=== PATIENT | female | born 1970 | race Caucasian/White ===

== ENCOUNTER 2024-08-31 00:09 | Inpatient (IN) | payer MEDICAID, SELFPAY ==
[2024-08-31] VITALS (15 sets, daily range): BP systolic 96–136; BP diastolic 60–90; PULSE 67–147; RESP 16–99; TEMP 36.2–39.5; O2SAT 95–99; BMI 36.6
--- NOTE | 2024-08-31 00:21 | PC.NURSE ---
sepsis alert called
--- NOTE | 2024-08-31 00:44 | EKG_ITS ---
[facility] Test Date: 2024-08-31 Pat Name: MIGUELANGEL BORREGO Department: Room: - Gender: Female Environmental Management Specialist: : 1970 Requested By: ED Temporary Provider Order Number: [id number] Reading MD: ED Temporary Provider Measurements Intervals [place] Rate: 134 P: 43 [place]: 127 QRS: -17 QRSD: 93 T: 52 QT: 287 QTc: 429 Interpretive Statements SINUS TACHYCARDIA LOW QRS VOLTAGE IN PRECORDIAL LEADS [QRS DEFLECTION < 1.0 mV IN CHEST LEADS] POSSIBLE ANTERIOR MYOCARDIAL INFARCTION , PROBABLY OLD [30 ms Q WAVE IN V3/V4, OR R < 0.2 mV IN V4] ABNORMAL RHYTHM ECG No previous ECG available for comparison /store/S0/[id number]/[id number].pdf
--- NOTE | 2024-08-31 00:44 | XR_ITS ---
Examination: PA chest single view TECHNIQUE: Upright PA chest single view Exam date and time: August 31, 2024 0051 hours INDICATIONS: Sepsis today. FINDINGS: Bronchitis versus early bibasilar pneumonia. Normal heart size Prominent osteopenia IMPRESSION: Bronchitis versus early bibasilar pneumonia, clinical correlation advised
--- NOTE | 2024-08-31 01:05 | EDRME_ITS ---
Rapid Medical Screening Exam [facility] Arrival date/time: 08/31/24 00:09 53F with history of hysterectomy leading to 2 hernias presents to ED with several days of cough, N/V, ab pain/cramping, and non-bloody diarrhea. Patient doesn't like taking meds due to practicing holistic medicine. Chief Complaint: Chest Pain Vital signs: Vital Signs Temperature 103.1 F H 08/31/24 00:19 Pulse Rate 147 H 08/31/24 00:19 Respiratory Rate 18 08/31/24 00:19 Blood Pressure 136/90 H 08/31/24 00:19 Pulse Oximetry (%) 99 08/31/24 00:19 Oxygen Delivery Method Room Air 08/31/24 00:19
--- NOTE | 2024-08-31 01:08 | XR_ITS ---
Examination: CT abdomen with intravenous contrast CT pelvis with intravenous contrast 2-D coronal reconstructions 2-D sagittal reconstructions Date and time of exam:August 31, 2024 0148 hours INDICATIONS: Onset abdominal pain today . CTDI: vol (mGy) 46.3 DLP: (mGycm) 933 Technique: Multiple axial sections of the abdomen and pelvis have been obtained. 64 slice high-resolution scanner used. 3 mm axial sections have been obtained, post intravenous injection 60 cc [id number] 2-D sagittal, coronal reconstructions obtained. Low dose protocols were performed. One or more of the following dose reduction techniques were used; automated exposure control, adjustment of the mA and/or KV according to patient size, use of iterative reconstruction technique. Findings: Liver irregular in contour, no focal liver lesions Splenomegaly AP dimension 14 cm No pancreatic or adrenal mass. Subtle edema involving the right kidney, no hydronephrosis or ureteral calculi Aorta normal size No bowel obstruction No pericecal inflammatory change Scattered colonic diverticulosis, no diverticulitis Urinary bladder wall is thickened up to 16 mm IMPRESSION: Cirrhosis versus primary hepatocellular disease Splenomegaly Suspicious for right pyelonephritis Thickening of the bladder wall, cystitis would be included in the differential
[2024-08-31 01:18] LABS: Lactate (Lactic Acid) 1.2 mMol/L (0.4-2.0)
[2024-08-31 01:23] LABS: Basophils % (Auto) 0 % (0-2.5); Eosinophils % (Auto) 0 % (0-10); Hematocrit 39.1 % (36.0-46.0); Hemoglobin 13.3 g/dL (12.0-16.0); Immature Granulocytes % (Auto) 1 % (0-0); Immature Granulocytes Auto 0.05 Thou/mm3 (0.00-0.00); Lymphocytes # (Auto) 0.6 Thou/mm3 (1.0-4.8); Lymphocytes % (Auto) 6 % (10-50); Mean Corpuscular Hemoglobin 27.5 pg (25.0-35.0); Mean Corpuscular Volume 81 fL (80-100); Monocytes # (Auto) 0.5 Thou/mm3 (0.0-0.8); Monocytes % (Auto) 5 % (0-12); Neutrophils # (Auto) 7.8 Thou/mm3 (1.8-7.7); Neutrophils % (Auto) 88 % (37-80); Nucleated Red Blood Cell % 0 /100 WBC (0); Platelet Count 164 Thou/mm3 (140-440); RDW Standard Deviation 43.5 fL (36.4-46.3); Red Blood Count 4.84 Miln/mm3 (4.00-5.20); White Blood Count 8.9 Thou/mm3 (3.6-11.0)
[2024-08-31 01:35] LABS: INR 1.2 (0.9-1.3); Partial Thromboplastin Time 29.3 Seconds (22.0-36.0); Prothrombin Time 12.6 Seconds (9.0-12.2)
[2024-08-31 01:59] LABS: Alanine Aminotransferase 27 U/L (10-49); Albumin, Serum 4.6 gm/dL (3.5-5.0); Albumin/Globulin Ratio 1.4 (1.2-2.2); Alkaline Phosphatase 75 U/L (46-116); Anion Gap 14 (7-16); Aspartate Amino Transferase 31 U/L (0-34); BUN/Creatinine Ratio 15 Ratio (12-20); Bilirubin,Total 1.2 mg/dL (0.3-1.2); Blood Urea Nitrogen 15 mg/dL (9-23); Calcium 10.4 mg/dL (8.3-10.6); Calcium (Corrected) 10.4 mg/dL (8.5-10.1); Carbon Dioxide 21.5 mMol/L (20.0-31.0); Chloride 100 mMol/L (98-107); Estimated Creatinine Clearance 68.1 mL/min (>60); Globulin 3.4 gm/dL (2.3-3.5); Glucose 141 mg/dL (74-106); Lipase 30 U/L (12-53); Osmolality,Calculated 272 (275-295); Potassium 4.2 mMol/L (3.4-5.1); Procalcitonin 6.76 ng/ml (0.0-0.49); Sodium 135 mMol/L (136-145); eGFR > 60 See Note
[2024-08-31 02:01] LABS: Troponin I 0.082 ng/mL (0.0-0.045)
[2024-08-31] MEDS: ONDANSETRON INJ 2 MG/ML INJ 2 ML 4 MG IV (02:15)
[2024-08-31] MEDS: ACETAMINOPHEN 500 MG TABLET PO (02:16)
[2024-08-31] MEDS: KETOROLAC INJ 30 MG/ML VIAL IVP (02:16)
[2024-08-31] MEDS: SODIUM CHLORIDE 0.9% 1000 ML 1,000 ML 999 ML IV (02:17)
[2024-08-31] MEDS: cefTRIAXone/D5w 1gm IV premix 1 GM/50 ML BAG IV ×2 (02:17→20:48)
--- NOTE | 2024-08-31 02:43 | PRELIM_ITS ---
CT scan of the abdomen and pelvis with intravenous contrast (axial sections with sagittal and coronal reformats) August 31, 2024 at 0145 hours Clinical History: Abdominal pain/cramping, nausea and vomiting and diarrhea. Comparison: No prior study is available for comparison. Findings: The lung bases are clear. The gallbladder, pancreas and adrenals are unremarkable. Heterogenous announcement of the right kidney. No hydronephrosis. Splenomegaly with anteroposterior diameter of 14.3 cm. Hepatomegaly. Irregular liver margins. No evidence of bowel obstruction. The appendix is within normal limits. There is no mesenteric or retroperitoneal adenopathy. The urinary bladder is nondistended, limited evaluation. There is no free fluid or free air. Degenerative changes of the imaged portions of the spine. Chronic multilevel disc disease. Small hiatus hernia. Fat-containing anterior abdominal hernia without evidence of inflammation or obstruction. Impression: 1. Probable right pyelonephritis. 2. Hepatomegaly and probable cirrhosis. 3. Small hiatus hernia. 4. Splenomegaly. Report Electronically Signed By: Nadeem Huston 08/31/2024 2:42:57 AM [EST]
[2024-08-31 03:17] LABS: Collection Type, Urine Clean Catch
[2024-08-31 03:42] LABS: Bilirubin,Urine Negative (Negative); Blood,Urine 3+ (Negative); Clarity,Urine Clear (Clear/Hazy); Color,Urine Yellow (Lt Yel-Yel); Glucose, Urine Negative (Negative); Ketones,Urine 1+ (Negative); Leukocyte Esterase,Urine Positive (Negative); Nitrite,Urine Negative (Negative); PH,Urine 6.5 (5.0-7.0); Protein,Urine 3+ (Neg - Trace); RBC,Urine 150 /hpf (0-3); Squamous Epithelial Cell,Urine 3 /hpf (0-5); Urobilinogen,Urine Negative mg/dL (0.0-1.0); WBC,Urine 83 /hpf (0-5)
--- NOTE | 2024-08-31 04:22 | PD.EDNV ---
Nausea/Vomit./Diarrhea-RME/HPI General Chief complaint: Chest Pain Stated complaint: HEART HURTS AND SHAKING FOR 30 MINUTES Time Seen by Provider: 08/31/24 04:21 Arrival date/time: 08/31/24 00:09 53F with history of hysterectomy leading to 2 hernias presents to ED with several days of cough, N/V, ab pain/cramping, and non-bloody diarrhea. Patient doesn't like taking meds due to practicing holistic medicine. Limitations: no limitations RME / HPI RME / HPI Narrative: 08/31/24 00:09 Related Data Previous Rx's ?Medication ?Instructions ?Recorded meclizine 12.5 mg tablet 12.5 mg PO Q8HR PRN dizziness #10 03/17/18 tabs Allergies Allergy/AdvReac Type Severity Reaction Status Date / Time Penicillins Allergy Severe THROAT Verified 08/31/24 00:10 SWELLING Review of Systems Review of Systems Systems Reviewed: All systems reviewed, normal except as documented Constitutional Constitutional: Reports system reviewed and no additional complaints, except as documented, Denies fever(s) and Denies headache(s) ENT Ears, Nose, Mouth, and Throat: Denies disequilibrium and Denies headache(s) Cardiovascular Cardiovascular: Reports system reviewed and no additional complaints, except as documented, Denies chest pain and Denies dyspnea Respiratory Respiratory: Reports system reviewed and no additional complaints, except as documented, Reports as per HPI, Reports cough and Denies dyspnea Gastrointestinal Gastrointestinal: Reports system reviewed and no additional complaints, except as documented, Reports as per HPI, Reports abdominal pain, Reports diarrhea, Reports nausea and Reports vomiting Neurologic Neurologic: Reports system reviewed and no additional complaints, except as documented, Denies confusion, Denies disequilibrium and Denies headache(s) Psychiatric Psychiatric: Denies confusion Past Medical History Past Medical History NEUROLOGIC: Negative Seizures CARDIAC: Negative Cardiac Disorders or Congestive Heart Failure RESPIRATORY: Negative Chronic Obstructive Pulmonary Disease (COPD) or Asthma GASTROINTESTINAL: Negative Gastrointestinal Disorders GENITOURINARY: Negative Genitourinary Disorders or Renal Disease REPRODUCTIVE: Positive Previous Pregnancies ENDOCRINE: Positive Endocrine Disorders; Negative Diabetes Mellitus Type 1 or Diabetes Mellitus Type 2 HEMATOLOGIC: Negative Blood Disorders or Sickle Cell Disease OTHER HISTORY: Positive Hospitalization; Negative Blood Transfusions, Blood Transfusion Reaction or Anesthesia Reactions Surgical History SURGICAL: Positive Hysterectomy and Section Social History SMOKING STATUS: Never smoker ED Exam General Limitations: Present no limitations General appearance: Present alert and in no apparent distress Head Head exam: Present atraumatic Eye Eye exam: Present normal appearance, PERRL and EOMI ENT ENT exam: Present normal exam, normal oropharynx and mucous membranes moist Neck Neck exam: Present normal inspection, full ROM and trachea midline Chest Chest inspection: Present normal inspection and symmetric chest wall rise Respiratory Respiratory exam: Present normal lung sounds bilaterally Cardiovascular Cardiovascular exam: Present regular rate, normal rhythm and normal heart sounds Abdominal Exam Abdominal exam: Present soft and normal bowel sounds Extremities Exam Extremities exam: Present normal inspection and full ROM Back Exam Back exam: Present normal inspection and full ROM Neurological Exam Neurological exam: Present alert, oriented X3 and CN II-XII intact Psychiatric Psychiatric exam: Present normal affect and normal mood Skin Skin exam: Present warm, dry, intact and normal color Course Quality Measures none Orders Category Date Time Status Bedside Blood Glucose NOW Care 08/31/24 00:44 Active Bedside COVID-19 Antigen Test NOW Care 08/31/24 00:47 Active Bedside Influenza A&B Antigen Test NOW Care 08/31/24 00:47 Completed COVID-19 Screening Questionnaire NOW Care 08/31/24 04:[address] Screening NOW Care 08/31/24 01:08 Active Metallography Teacher Q4H START 00 Care 08/31/24 00:44 Active Decision to Admit X1 Care 08/31/24 04:27 Completed EKG (ED ONLY) *Do not use* NOW Care 08/31/24 00:47 Completed Insert IV NOW Care 08/31/24 00:44 Active Strict Intake and Output Routine Care 08/31/24 00:[address] abdomen pelvis w con Stat Exams 08/31/24 01:08 Taken EKG (ED Only) Stat Exams 08/31/24 00:47 Stop Req XR chest 1V SEPSIS PROTOCOL Stat Exams 08/31/24 00:44 Taken Blood Culture (Lab) Stat Lab 08/31/24 01:07 Received CBC Stat Lab 08/31/24 01:11 Completed Comprehensive Metabolic Panel Stat Lab 08/31/24 01:11 Completed Comprehensive Metabolic Panel Stat Lab 08/31/24 04:55 Received Lactate (Lactic Acid) Stat Lab 08/31/24 01:07 Completed Lipase Stat Lab 08/31/24 01:11 Completed Partial Thromboplastin Time Stat Lab 08/31/24 01:11 Completed Procalcitonin Stat Lab 08/31/24 01:11 Completed Prothrombin Time with INR Stat Lab 08/31/24 01:11 Completed Troponin I Stat Lab 08/31/24 01:11 Completed Troponin I Stat Lab 08/31/24 04:55 Received Urinalysis Stat Lab 08/31/24 03:11 Completed Urine Culture Stat Lab 08/31/24 03:11 Received Acetaminophen Tab [Tylenol ES Tab] Med 08/31/24 01:06 Discontinued 500 mg PO X1 ONE Ketorolac Inj [Toradol Inj] Med 08/31/24 01:06 Discontinued 30 mg IVP X1 ONE Ondansetron Inj [Zofran Inj] Med 08/31/24 01:03 Discontinued 4 mg IV X1 ONE Sodium Chloride 0.9% 1000 ml [Ns] 1,000 ml Med 08/31/24 01:03 Discontinued IV 999 mls/hr cefTRIAXone/D5w 1gm IV premix [Rocephin/D5w 1gm IV Med 08/31/24 01:04 Discontinued premix] 1 gm in 50 ml IV X1 EKG (RT) Stat RT 08/31/24 00:44 Draft Oxygen Delivery NOW RT 08/31/24 00:44 Active Vital Signs Vital signs: Vital Signs Temperature 103.1 F H 08/31/24 00:19 Pulse Rate 147 H 08/31/24 00:19 Respiratory Rate 18 08/31/24 00:19 Blood Pressure 136/90 H 08/31/24 00:19 Pulse Oximetry (%) 99 08/31/24 00:19 Oxygen Delivery Method Room Air 08/31/24 00:19 O2 at 99% on RA and WNLs Nausea/Vomiting/Diarrhea MDM Narrative MDM Narrative:: 53F with history of hysterectomy leading to 2 hernias presents to ED with several days of cough, N/V, ab pain/cramping, and non-bloody diarrhea. Patient doesn't like taking meds due to practicing holistic medicine. Physical exam reveals no ab tenderness. Clear lungs. Normal WOB. Patient is febrile, but alert and calm. Sepsis alert called. CT shows R pyelonephritis. UA confirms that. EKG is sinus tach of 134. Trop mildly elevated by 0.082, likely due to sepsis. No leukocytosis, but procal elevated at 6. CMP unremarkable. Wet CXR read possible PNA pending official report. Swabs neg. Upon reassessment, all VS WNLs after inventions. Spoke to Dr. Driscoll, IM resident who states patient will be admitted upstairs. Patient data External records reviewed:: [facility] previous records Clinical information provided by:: patient Social determinants that could affect healthcare access:: none Patient has the following chronic illnesses:: none How is presenting disease/condition affected by chronic disease/condition?: no chronic disease Evaluation data The following diagnostics were reviewed and interpreted by me:: lab results, radiology exam(s) and EKG tracing(s) Lab and/or radiology exams considered but not ordered:: ordered Interpretation Summary: above Medications / Prescriptions Medications / Prescriptions considered but not ordered:: ordered Medication administrations:: Medication Administration History Acetaminophen (Acetaminophen 325 Mg Tablet) 650 mg PO Q6H PRN PRN Reason: Fever >100.3 or pain 1-3 Stop: 09/30/24 04:46 Enoxaparin Sodium (Enoxaparin Sod Inj 40 Mg/0.4 Ml Syringe) 40 mg SC QDAY CASH Stop: 09/14/24 08:59 Lactated Ringer's (Lactated Ringers) 1,000 mls @ 999 mls/hr IV .Q1H1M CASH Stop: 08/31/24 06:56 Last Admin: 08/31/24 05:14 Dose: 999 mls/hr Documented By: BD Ondansetron HCl (Ondansetron Inj 2 Mg/Ml Inj 2 Ml) 4 mg IV Q6H PRN; Protocol PRN Reason: NAUSEA OR VOMITING Stop: 09/30/24 04:46 Sennosides (Senna Tablet) 1 tab PO QDAY PRN; Protocol PRN Reason: constipation Stop: 09/30/24 04:46 Discontinued Medications Acetaminophen (Acetaminophen 500 Mg Tablet) 500 mg PO X1 ONE Stop: 08/31/24 01:07 Last Admin: 08/31/24 02:16 Dose: 500 mg Documented By: BD Sodium Chloride (Ns) 1,000 mls @ 999 mls/hr IV .Q1H1M ONE Stop: 08/31/24 02:03 Last Infusion: 08/31/24 04:06 Dose: Infused Documented By: Admin: 08/31/24 02:17 Dose: 999 mls/hr Documented By: BD Ceftriaxone Sodium/Dextrose (Rocephin/D5w 1gm Iv Premix) 1 gm in 50 mls @ 100 mls/hr IV X1 ONE Stop: 08/31/24 01:33 Last Infusion: 08/31/24 02:49 Dose: Infused Documented By: Admin: 08/31/24 02:17 Dose: 100 mls/hr Documented By: BD Lactated Ringer's (Lactated Ringers) 1,000 mls @ 999 mls/hr IV .Q1H1M ONE Stop: 08/31/24 05:53 Ketorolac Tromethamine (Ketorolac Inj 30 Mg/Ml Vial) 30 mg IVP X1 ONE Stop: 08/31/24 01:07 Last Admin: 08/31/24 02:16 Dose: 30 mg Documented By: BD Ondansetron HCl (Ondansetron Inj 2 Mg/Ml Inj 2 Ml) 4 mg IV X1 ONE; Protocol Stop: 08/31/24 01:04 Last Admin: 08/31/24 02:15 Dose: 4 mg Documented By: BD ordered Consultations Consultation(s) initiated? (list below): Yes Diagnosis Nausea Differential Diagnosis: traveler's diarrhea, food poisoning, gastroenteritis, clostridium difficile infection, drug-induced nausea and vomiting, dehydration and other (pyelonephritis, PNA) Most likely diagnosis given after review of the tests above:: pyelonephritis Admission Indicated Admission indicated?: not indicated Admission Request Was there a request for admission?: Yes Admission Attestation Admission request attestation: Discussed case with [Dr. Driscoll] from Hospitalist service regarding admission. Discussed patients ED course, exam findings, labs, and radiology results. The Hospitalist [agrees] to accept the patient for admission. Disposition Plan Disposition Plan: Admit Discharge Plan Plan Patient Disposition: Admit Acute Care w/in Hospital Disposition Comment: Stable Problem List Clinical Impression: Pyelonephritis
--- NOTE | 2024-08-31 04:47 | ESHP_ITS ---
Documentation for date of: 08/31/24 HPI History of Present Illness Chief complaint: general weakness, nausea, vomiting History of present illness: The patient is a 53-year-old female with no significant medical history who came to the ED with general weakness, nausea, vomiting, chills, shaking. She reported that the symptoms started approximately few days ago, she started to feel generally weak, felt decreased levels of energy, decreased appetite, a few days ago she noticed some back pain. She denies cough, chest pain, abdominal pain. In the ED: Blood pressure 136/98, heart rate 147, temperature 103.1, saturating adequately on room air. Sepsis alert was called. Labs were significant for increased level of immature granulocytes, creatinine 1.0, BUN 15, troponin I 0.082, procalcitonin 6.76. UA was significant for signs of UTI. CT of the abdomen pelvis with contrast was positive for probable right pyelonephritis, hepatomegaly and probable cirrhosis, small hiatus hernia and splenomegaly. Patient is going to be admitted for complicated UTI treatment. Social history: does not smoke or drink alcohol. Medications: denies Surgeries: s/p hysterectomy Review of Systems Review of Systems Systems Reviewed: All systems reviewed, normal except as documented Past Medical History Past Medical History NEUROLOGIC: Negative Seizures CARDIAC: Negative Cardiac Disorders or Congestive Heart Failure RESPIRATORY: Negative Chronic Obstructive Pulmonary Disease (COPD) or Asthma GASTROINTESTINAL: Negative Gastrointestinal Disorders GENITOURINARY: Negative Genitourinary Disorders or Renal Disease REPRODUCTIVE: Positive Previous Pregnancies ENDOCRINE: Positive Endocrine Disorders; Negative Diabetes Mellitus Type 1 or Diabetes Mellitus Type 2 HEMATOLOGIC: Negative Blood Disorders or Sickle Cell Disease OTHER HISTORY: Positive Hospitalization; Negative Blood Transfusions, Blood Transfusion Reaction or Anesthesia Reactions Surgical History SURGICAL: Positive Hysterectomy and Section Social History SMOKING STATUS: Never smoker Exam Vital Signs Temp Pulse Resp BP Pulse Ox O2 Del Method 98.4 F 85 18 108/68 95 Room Air 08/31/24 03:28 08/31/24 03:22 08/31/24 03:22 08/31/24 03:22 08/31/24 03:22 08/31/24 03:22 Narrative Exam Physical Exam General: Awake and in no acute distress. Conversational and non-toxic appearing. HEENT: Normocephalic, atraumatic, mucous membranes moist. Heart: Regular rate and rhythm, no murmurs. Lungs: Clear to auscultation with no wheezing or crackles. Abdomen: Soft, nondistended, mild epigastric tenderness, positive bowel sounds. ?No guarding or rebound tenderness. Mild right CVA tenderness. Neurologic: Alert and oriented x3, no gross neurological deficit, and patient able to move all 4 extremities. Extremities: No edema. Skin: No rash or ecchymoses. Results: Labs 08/31/24 04:55 08/31/24 04:55 Labs: Short CBC 08/31/24 Range/Units 01:11 WBC 8.9 (3.6-11.0) Thou/mm3 Hgb 13.3 (12.0-16.0) g/dL Hct 39.1 (36.0-46.0) % Plt Count 164 (140-440) Thou/mm3 BMP 08/31/24 01:11 Sodium 135 L Potassium 4.2 Chloride 100 Carbon Dioxide 21.5 BUN 15 Creatinine 1.0 Glucose 141 H Calcium 10.4 Cardiac Enzymes 08/31/24 Range/Units 01:11 Troponin I 0.082 H* (0.0-0.045) ng/mL Liver Function 08/31/24 Range/Units 01:11 Total Bilirubin 1.2 (0.3-1.2) mg/dL AST 31 (0-34) U/L ALT 27 (10-49) U/L Alkaline Phosphatase 75 (46-116) U/L Albumin 4.6 (3.5-5.0) gm/dL Urine 08/31/24 Range/Units 03:11 Urine Color Yellow (Lt Yel-Yel) Urine Clarity Clear (Clear/Hazy) Urine pH 6.5 (5.0-7.0) Ur Specific [place] 1.010 (1.001-1.035) Urine Protein 3+ A (Neg - Trace) Urine Glucose (UA) Negative (Negative) Quality Measures Quality Measures VTE prophylaxis Medications Home Medications and Allergies Allergies Allergy/AdvReac Type Severity Reaction Status Date / Time Penicillins Allergy Severe THROAT Verified 08/31/24 00:10 SWELLING Visit Medications Discontinued Medications Acetaminophen (Acetaminophen 500 Mg Tablet) 500 mg PO X1 ONE Stop: 08/31/24 01:07 Last Admin: 08/31/24 02:16 Dose: 500 mg Sodium Chloride (Ns) 1,000 mls @ 999 mls/hr IV .Q1H1M ONE Stop: 08/31/24 02:03 Last Infusion: 08/31/24 04:06 Dose: Infused Ceftriaxone Sodium/Dextrose (Rocephin/D5w 1gm Iv Premix) 1 gm in 50 mls @ 100 mls/hr IV X1 ONE Stop: 08/31/24 01:33 Last Infusion: 08/31/24 02:49 Dose: Infused Ketorolac Tromethamine (Ketorolac Inj 30 Mg/Ml Vial) 30 mg IVP X1 ONE Stop: 08/31/24 01:07 Last Admin: 08/31/24 02:16 Dose: 30 mg Ondansetron HCl (Ondansetron Inj 2 Mg/Ml Inj 2 Ml) 4 mg IV X1 ONE; Protocol Stop: 08/31/24 01:04 Last Admin: 08/31/24 02:15 Dose: 4 mg Assessment & Plan Plan The patient is a 53-year-old female with no significant medical history who came to the ED with general weakness, nausea, vomiting, chills, shaking. Patient is going to be admitted for complicated UTI treatment. #Sepsis 2/2 to UTI #Complex UTI Patient on admission was febrile, tachycardic 2/4 SIRS criteria. She was nauseas, vomiting. UA positive for signs of UTI. Plan: - Ceftriaxone 1 g daily - Fluids 30 ml/kg bolus - Urine culture ordered - Blood culture ordered #Nausea, vomiting #Epigastric pain Plan: - pantoprazole 40 mg qday - ondansetron as needed Health maintenance: FEN: regular DVT prophylaxis: lovenox 40 sc GI prophylaxis: pantoprazole Dispo: med surg CODE STATUS: Full code Plan of care discussed with attending Dr. Nicole. Yamila Hdz MD, PGY 1. Attending Provider Attestation/Addendum I attest that I was physically present for the evaluation, physical examination, lab and imaging review of the patient with the residents. I discussed the case with the residents and agree with the findings and plans of care as documented above. Patient is a 53 years old female without known past medical history who presented to the ED with generalized weakness, nausea, vomiting, chills and shaking. In the ED, she was found to have a temperature of 103.1. She was also tachycardic with heart rate of 147. Sepsis alert was called. UA was obtained, showed WBCs. CT abdomen/pelvis with contrast was positive for probable right pyelonephritis, hepatomegaly and probable cirrhosis, small hiatus hernia and splenomegaly. We will admit the patient for management of sepsis secondary to complicated UTI. We will start her on IV Rocephin, IV fluid bolus. Cultures are obtained. Add in Zofran as needed and pantoprazole for epigastric pain and nausea/vomiting. Faustino Nicole MD
[2024-08-31 05:07] LABS: Basophils % (Auto) 0 % (0-2.5); Eosinophils % (Auto) 0 % (0-10); Hematocrit 36.6 % (36.0-46.0); Hemoglobin 12.1 g/dL (12.0-16.0); Immature Granulocytes % (Auto) 0 % (0-0); Immature Granulocytes Auto 0.02 Thou/mm3 (0.00-0.00); Lymphocytes # (Auto) 0.8 Thou/mm3 (1.0-4.8); Lymphocytes % (Auto) 10 % (10-50); Mean Corpuscular HGB Conc 33.1 g/dl (31.0-37.0); Mean Corpuscular Hemoglobin 27.5 pg (25.0-35.0); Mean Corpuscular Volume 83 fL (80-100); Monocytes # (Auto) 0.9 Thou/mm3 (0.0-0.8); Monocytes % (Auto) 12 % (0-12); Neutrophils % (Auto) 78 % (37-80); Nucleated Red Blood Cell % 0 /100 WBC (0); Platelet Count 161 Thou/mm3 (140-440); RDW Standard Deviation 44.9 fL (36.4-46.3); White Blood Count 7.7 Thou/mm3 (3.6-11.0)
[2024-08-31] MEDS: RINGERS LACTATED 1000 ML 1,000 ML 999 ML IV ×2 (05:14→08:54)
[2024-08-31 06:26] LABS: Alanine Aminotransferase 28 U/L (10-49); Albumin, Serum 3.9 gm/dL (3.5-5.0); Albumin/Globulin Ratio 1.5 (1.2-2.2); Alkaline Phosphatase 66 U/L (46-116); Anion Gap 11 (7-16); Aspartate Amino Transferase 40 U/L (0-34); BUN/Creatinine Ratio 18 Ratio (12-20); Bilirubin,Total 0.7 mg/dL (0.3-1.2); Blood Urea Nitrogen 18 mg/dL (9-23); Calcium (Corrected) 9.1 mg/dL (8.5-10.1); Carbon Dioxide 22.2 mMol/L (20.0-31.0); Chloride 102 mMol/L (98-107); Estimated Creatinine Clearance 68.1 mL/min (>60); Globulin 2.6 gm/dL (2.3-3.5); Glucose 151 mg/dL (74-106); Osmolality,Calculated 275 (275-295); Potassium 4.7 mMol/L (3.4-5.1); Sodium 135 mMol/L (136-145); Total Protein 6.5 gm/dL (5.7-8.2); eGFR > 60 See Note
[2024-08-31 06:43] LABS: Troponin I 0.103 ng/mL (0.0-0.045)
--- NOTE | 2024-08-31 08:03 | PC.NURSE ---
Spoke w/ at this time, pt will be switched to tele, instead of med-surg
--- NOTE | 2024-08-31 08:11 | PC.NURSE ---
pt denies any pain or discomfort at this time SR on tele, call hamilton remains in reach, will cotinue w/POC
[2024-08-31] MEDS: ENOXAPARIN SOD INJ 40 MG/0.4 ML SYRINGE SC (08:52)
[2024-08-31] MEDS: PANTOPRAZOLE 40 MG TABLET PO (08:52)
--- NOTE | 2024-08-31 09:54 | PC.NURSE ---
0944 called MD, pt complaining of shaking, pt does not ave a fever, blankets provided. MD to look into it and possibly place new orders for anxiety. Pt updated on this
--- NOTE | 2024-08-31 10:02 | PC.CC ---
Patient is a 53 year-old female who presents to the hospital for Pyelonephritis. Shawna MATTA made [id number] contact with patient. ASW introduced self, role, and reason for visit. Patient appeared alert and oriented to self, location, and situation. Patient was pleasant and engaged in initial assessment. Patient confirmed information on demographics and reports to living at home with her , Elver Boyle . Patient reports that in the event she is unable to make her own medical decisions her would be her medical decision maker. Patient reports at home she ambulates independently and completes her own ADLs. Patient does not use any DME at home. Primary care provider is Kurt Gomez and uses [facility]. Upon discharge patient plans to return back home. financial services manager to follow up with any discharge needs.
[2024-08-31] MEDS: ACETAMINOPHEN 325 MG TABLET 650 MG PO (10:21)
--- NOTE | 2024-08-31 10:46 | ESPR_ITS ---
<Statement entered by Johny Barrett MD - 09/01/24 07:18> Senior Resident Attestation: I supervised/discussed management plan with programming intern physician Dr. Peña, and was involved in the care of this patient. I personally saw and examined the patient and discussed the assessment and plan with the entire medicine team, including my attending. I agree with the assessment and plan as documented. Patient's care was discussed with attending physician, Dr. Holcomb. Johny Barrett MD PGY-2. Documentation for date of: 08/31/24 Subjective Subjective Interval history: Maricarmen Vallejo is a 53-year-old female with no significant past medical history who presented with generalized weakness, N/V, chills, and shakes that started a few days ago. Also endorses associated decreased appetite and mild back pain. In ED, HR 147, temp 103.1 ?F, normotensive, and on room air. CBC unremarkable but neutrophil count elevated,, UA Pro-Loyd 6.7 showed 150 RBC, 83 WBC, LE positive. Initial troponin 0.08 -> 0.1. EKG shows sinus tachycardia, CXR showed possible early bibasilar pneumonia. CT A/P: Suspicious for right pyelonephritis, thickened bladder wall, splenomegaly, irreular liver contour. Admitted for management for right pyelonephritis. 08/31: Seen and examined at bedside, laying comfortably in bed. States that she has been continue to have fevers, sweats, and chills but resolved with ibuprofen. States that she did not have any dysuria prior to admission but did have some dysuria today. No longer endorses back pain or any abdominal pain. Exam Vital Signs Temp Pulse Resp BP Pulse Ox O2 Del Method 101.5 F H 103 H 20 118/85 H 98 Room Air 08/31/24 10:21 08/31/24 10:12 08/31/24 10:12 08/31/24 10:12 08/31/24 10:12 08/31/24 10:12 Narrative Exam General: AOx3, no acute distress, able to speak full sentences HEENT: NC/AT, mucous membranes moist, bilateral sclera anicteric Cardiovascular: regular rate and rhythm, S1/S2 present, no murmurs appreciated Pulmonary: clear to auscultation bilaterally, no rales/rhonchi/wheezes Abdominal: soft, non-tender, non-distended, no rebound/guarding, normal bowel sounds present Musculoskeletal: normal ROM, no peripheral edema Skin: warm and dry, intact, no rashes Neuro: CN II-XII intact, no focal deficits Objective Labs 09/01/24 04:18 09/01/24 04:18 Labs: Laboratory Results - last 24 hr 08/31/24 08/31/24 08/31/24 01:07 01:11 03:11 WBC 8.9 RBC 4.84 Hgb 13.3 Hct 39.1 MCV 81 MCH 27.5 MCHC 34.0 RDW Std Deviation 43.5 Plt Count 164 Neut % (Auto) 88 H Lymph % (Auto) 6 [place] % (Auto) 5 Eos % (Auto) 0 Baso % (Auto) 0 Neut # (Auto) 7.8 H Lymph # (Auto) 0.6 L [place] # (Auto) 0.5 Eos # (Auto) 0.0 Baso # (Auto) 0.0 Immature Gran # (Auto) 0.05 H Absolute Nucleated RBC 0.00 Immature Gran % 1 H Nucleated RBC % 0 PT 12.6 H INR 1.2 APTT 29.3 Sodium 135 L Potassium 4.2 Chloride 100 Carbon Dioxide 21.5 Anion Gap 14 BUN 15 Creatinine 1.0 Estim Creat Clear Calc 68.1 eGFR > 60 BUN/Creatinine Ratio 15 Glucose 141 H Calculated Osmolality 272 L Lactic Acid 1.2 Calcium 10.4 Corrected Calcium 10.4 H Total Bilirubin 1.2 AST 31 ALT 27 Alkaline Phosphatase 75 Troponin I 0.082 H* Total Protein 8.0 Albumin 4.6 Globulin 3.4 Albumin/Globulin Ratio 1.4 Lipase 30 Procalcitonin 6.76 H Ur Collection Type Clean Catch Urine Color Yellow Urine Clarity Clear Urine pH 6.5 Ur Specific Athena 1.010 Urine Protein 3+ A Urine Glucose (UA) Negative Urine Ketones 1+ A Urine Blood 3+ A Urine Nitrite Negative Urine Bilirubin Negative Urine Urobilinogen (Auto) Negative Ur Leukocyte Esterase Positive Urine RBC 150 H Urine WBC 83 H Ur Squamous Epith Cells 3 Urine Bacteria None 08/31/24 04:55 WBC 7.7 RBC 4.40 Hgb 12.1 Hct 36.6 MCV 83 MCH 27.5 MCHC 33.1 RDW Std Deviation 44.9 Plt Count 161 Neut % (Auto) 78 Lymph % (Auto) 10 [place] % (Auto) 12 Eos % (Auto) 0 Baso % (Auto) 0 Neut # (Auto) 6.0 Lymph # (Auto) 0.8 L [place] # (Auto) 0.9 H Eos # (Auto) 0.0 Baso # (Auto) 0.0 Immature Gran # (Auto) 0.02 H Absolute Nucleated RBC 0.00 Immature Gran % 0 Nucleated RBC % 0 PT INR APTT Sodium 135 L Potassium 4.7 D Chloride 102 Carbon Dioxide 22.2 Anion Gap 11 BUN 18 Creatinine 1.0 Estim Creat Clear Calc 68.1 eGFR > 60 BUN/Creatinine Ratio 18 Glucose 151 H Calculated Osmolality 275 Lactic Acid Calcium 9.0 Corrected Calcium 9.1 Total Bilirubin 0.7 D AST 40 H ALT 28 Alkaline Phosphatase 66 Troponin I 0.103 H* Total Protein 6.5 Albumin 3.9 D Globulin 2.6 Albumin/Globulin Ratio 1.5 Lipase Procalcitonin Ur Collection Type Urine Color Urine Clarity Urine pH Ur Specific Athena Urine Protein Urine Glucose (UA) Urine Ketones Urine Blood Urine Nitrite Urine Bilirubin Urine Urobilinogen (Auto) Ur Leukocyte Esterase Urine RBC Urine WBC Ur Squamous Epith Cells Urine Bacteria Quality Measures Quality Measures VTE prophylaxis Assessment & Plan Assessment Current Active Medications: Generic Name Dose Route Start Last Admin Trade Name Freq PRN Reason Stop Dose Admin Acetaminophen 650 mg 08/31/24 04:47 08/31/24 10:21 Acetaminophen 325 Mg Tablet PO 09/30/24 04:46 650 mg Q6H PRN Administration Fever >100.3 or pain 1-3 Enoxaparin Sodium 40 mg 08/31/24 09:00 08/31/24 08:52 Enoxaparin Sod Inj 40 Mg/0.4 Ml Syringe SC 09/14/24 08:59 40 mg QDAY CASH Administration Ceftriaxone Sodium/Dextrose 1 gm in 50 mls @ 100 mls/hr 08/31/24 21:00 Rocephin/D5w 1gm Iv Premix IV 09/07/24 20:59 QDAY@2100 CASH Ondansetron HCl 4 mg 08/31/24 04:47 Ondansetron Inj 2 Mg/Ml Inj 2 Ml IV 09/30/24 04:46 Q6H PRN NAUSEA OR VOMITING Protocol Pantoprazole Sodium 40 mg 08/31/24 09:00 08/31/24 08:52 Pantoprazole 40 Mg Tablet PO 09/30/24 08:59 40 mg QDAY CASH Administration Sennosides 1 tab 08/31/24 04:47 Senna Tablet PO 09/30/24 04:46 QDAY PRN constipation Protocol Plan Maricarmen Vallejo is a 53-year-old female with no significant past medical history who presented with generalized weakness, N/V, chills, and shakes that started a few days ago. Also endorses associated decreased appetite and mild back pain. In ED, HR 147, temp 103.1 ?F, normotensive, and on room air. CBC unremarkable but neutrophil count elevated,, UA Pro-Loyd 6.7 showed 150 RBC, 83 WBC, LE positive. Initial troponin 0.08 -> 0.1. EKG shows sinus tachycardia, CXR showed possible early bibasilar pneumonia. CT A/P: Suspicious for right pyelonephritis, thickened bladder wall, splenomegaly, irreular liver contour. Admitted for management for right pyelonephritis. #Right-sided pyelonephritis #Complex UTI Presented with generalized weakness, N/V, chills, shakes, decreased appetite, mild back pain. CT A/P: Suspicious for right pyelonephritis, thickened bladder wall On admission, temp 103.1 ?F, HR 147, normotensive, on RA. No leukocytosis, elevated neutrophil count, Pro-Loyd 6.7. UA: 83 WBC, LE positive, 150 RBC. ? Ceftriaxone 1 g IV daily ? Urine culture 08/31: Pending ? Blood culture : Pending #Nausea, vomiting #Epigastric pain T. bili wnl, AST and ALT normal upon admission. AST slightly up trended. ? Pantoprazole 40 mg daily ? Zofran as needed ? Continue to monitor Hospital management: Disposition: management of right-sided pyelonephritis, pending cultures Fluids: not indicated Diet: regular Lines: PIV DVT prophylaxis: enoxaparin 40 mg daily GI prophylaxis: pantoprazole 40 mg daily CODE STATUS: full code ----- Plan discussed with attending physician Dr. Aicha Peña MD PGY-1 Internal Medicine Attending Provider Attestation/Addendum Face to face evaluation was performed by me. I have personally seen and examined the patient. I discussed the assessment and plan with the entire medicine team. I reviewed available medical records, imaging studies, laboratory results. I agree with the above subjective data, objective findings, assessment and plan except as corrected by me or noted below Sepsis present admission due to below without septic shock Right-sided pyelonephritis complicated urinary tract infection, suspect gram- negative bacilli Chills and shivering due to above Continue IV ceftriaxone antibiotic. IV fluids, as needed Tylenol. Follow urine cultures/susceptibilities More than > 30 minutes spent on the encounter
[2024-08-31 11:40] LABS: Troponin I 0.056 ng/mL (0.0-0.045)
--- NOTE | 2024-08-31 12:43 | PC.NURSE ---
THIS RN TOLD MD THAT PTS TEMP IS ELEVATED AGAIN AFTER ADMINISTERING TYLENOL. MD TO PUT IN NEW ORDERS.
[2024-08-31] MEDS: IBUPROFEN TAB 400 MG TABLET PO (13:18)
--- NOTE | 2024-08-31 14:14 | PC.NURSE ---
PT TAKEN UPSTAIRS CONNECTED TO TELE BY THIS RN W/O INCIDENT. FLOOR STAFF AT BEDSIDE TO ASSUME CARE
[2024-09-01] VITALS (16 sets, daily range): BP systolic 95–129; BP diastolic 60–75; PULSE 82–105; RESP 17–99; TEMP 36.9–37.9; O2SAT 94–99; BMI 40.9
[2024-09-01] MEDS: IBUPROFEN TAB 400 MG TABLET PO (00:09)
[2024-09-01 05:05] LABS: Basophils % (Auto) 0 % (0-2.5); Eosinophils % (Auto) 0 % (0-10); Hematocrit 33.5 % (36.0-46.0); Hemoglobin 10.9 g/dL (12.0-16.0); Immature Granulocytes % (Auto) 0 % (0-0); Immature Granulocytes Auto 0.02 Thou/mm3 (0.00-0.00); Lymphocytes % (Auto) 17 % (10-50); Mean Corpuscular HGB Conc 32.5 g/dl (31.0-37.0); Mean Corpuscular Hemoglobin 27.4 pg (25.0-35.0); Mean Corpuscular Volume 84 fL (80-100); Monocytes # (Auto) 0.8 Thou/mm3 (0.0-0.8); Monocytes % (Auto) 14 % (0-12); Neutrophils # (Auto) 3.8 Thou/mm3 (1.8-7.7); Neutrophils % (Auto) 67 % (37-80); Nucleated Red Blood Cell % 0 /100 WBC (0); Platelet Count 141 Thou/mm3 (140-440); RDW Standard Deviation 46.3 fL (36.4-46.3); Red Blood Count 3.98 Miln/mm3 (4.00-5.20); White Blood Count 5.6 Thou/mm3 (3.6-11.0)
[2024-09-01 05:26] LABS: Alanine Aminotransferase 25 U/L (10-49); Albumin, Serum 3.7 gm/dL (3.5-5.0); Albumin/Globulin Ratio 1.4 (1.2-2.2); Alkaline Phosphatase 71 U/L (46-116); Anion Gap 9 (7-16); Aspartate Amino Transferase 24 U/L (0-34); BUN/Creatinine Ratio 15 Ratio (12-20); Bilirubin,Total 0.4 mg/dL (0.3-1.2); Blood Urea Nitrogen 12 mg/dL (9-23); Calcium 8.9 mg/dL (8.3-10.6); Calcium (Corrected) 9.1 mg/dL (8.5-10.1); Carbon Dioxide 24.7 mMol/L (20.0-31.0); Chloride 102 mMol/L (98-107); Creatinine (Component) 0.8 mg/dL (0.6-1.3); Estimated Creatinine Clearance 85.2 mL/min (>60); Globulin 2.7 gm/dL (2.3-3.5); Glucose 116 mg/dL (74-106); Osmolality,Calculated 272 (275-295); Potassium 3.8 mMol/L (3.4-5.1); Sodium 136 mMol/L (136-145); Total Protein 6.4 gm/dL (5.7-8.2); eGFR > 60 See Note
[2024-09-01] MEDS: ENOXAPARIN SOD INJ 40 MG/0.4 ML SYRINGE SC (08:50)
[2024-09-01] MEDS: ACETAMINOPHEN 325 MG TABLET 650 MG PO ×2 (08:50→15:27)
[2024-09-01] MEDS: PANTOPRAZOLE 40 MG TABLET PO (08:50)
--- NOTE | 2024-09-01 10:46 | ESPR_ITS ---
<Statement entered by Johny Barrett MD - 09/01/24 12:11> Senior Resident Attestation: I supervised/discussed management plan with collector of internal revenue physician Dr. Peña, and was involved in the care of this patient. I personally saw and examined the patient and discussed the assessment and plan with the entire medicine team, including my attending. I agree with the assessment and plan as documented. Patient's care was discussed with attending physician, Dr. Holcomb. Johny Barrett MD PGY-2. Documentation for date of: 09/01/24 Subjective Subjective Interval history: Maricarmen Vallejo is a 53-year-old female with no significant past medical history who presented with generalized weakness, N/V, chills, and shakes that started a few days ago. Also endorses associated decreased appetite and mild back pain. In ED, HR 147, temp 103.1 ?F, normotensive, and on room air. CBC unremarkable but neutrophil count elevated,, UA Pro-Loyd 6.7 showed 150 RBC, 83 WBC, LE positive. Initial troponin 0.08 -> 0.1. EKG shows sinus tachycardia, CXR showed possible early bibasilar pneumonia. CT A/P: Suspicious for right pyelonephritis, thickened bladder wall, splenomegaly, irreular liver contour. Admitted for management for right pyelonephritis. 08/31: Seen and examined at bedside, laying comfortably in bed. States that she has been continue to have fevers, sweats, and chills but resolved with ibuprofen. States that she did not have any dysuria prior to admission but did have some dysuria today. No longer endorses back pain or any abdominal pain. 09/01: No acute overnight events noted. Seen and examined at bedside and patient stating that she is continue to have fevers, sweats, and chills but improved after taking ibuprofen. No longer having dysuria but now having intermittent back pain. Tolerating her diet well. Exam Vital Signs Temp Pulse Resp BP Pulse Ox O2 Del Method 100.3 F 102 H 20 125/75 99 Room Air 09/01/24 08:50 09/01/24 07:51 09/01/24 07:51 09/01/24 07:51 09/01/24 07:51 09/01/24 07:51 Narrative Exam General: AOx3, no acute distress, able to speak full sentences HEENT: NC/AT, mucous membranes moist, bilateral sclera anicteric Cardiovascular: regular rate and rhythm, S1/S2 present, no murmurs appreciated Pulmonary: clear to auscultation bilaterally, no rales/rhonchi/wheezes Abdominal: soft, non-tender, non-distended, no rebound/guarding, normal bowel sounds present Musculoskeletal: Right-sided CVA tenderness, normal ROM, no peripheral edema Skin: warm and dry, intact, no rashes Neuro: CN II-XII intact, no focal deficits Objective Labs 09/01/24 04:18 09/01/24 04:18 Labs: Laboratory Results - last 24 hr 08/31/24 09/01/24 11:10 04:18 WBC 5.6 RBC 3.98 L Hgb 10.9 L Hct 33.5 L MCV 84 MCH 27.4 MCHC 32.5 RDW Std Deviation 46.3 Plt Count 141 Neut % (Auto) 67 Lymph % (Auto) 17 [place] % (Auto) 14 H Eos % (Auto) 0 Baso % (Auto) 0 Neut # (Auto) 3.8 Lymph # (Auto) 1.0 [place] # (Auto) 0.8 Eos # (Auto) 0.0 Baso # (Auto) 0.0 Immature Gran # (Auto) 0.02 H Absolute Nucleated RBC 0.00 Immature Gran % 0 Nucleated RBC % 0 Sodium 136 Potassium 3.8 D Chloride 102 Carbon Dioxide 24.7 Anion Gap 9 BUN 12 Creatinine 0.8 Estim Creat Clear Calc 85.2 eGFR > 60 BUN/Creatinine Ratio 15 Glucose 116 H Calculated Osmolality 272 L Calcium 8.9 Corrected Calcium 9.1 Total Bilirubin 0.4 AST 24 ALT 25 Alkaline Phosphatase 71 Troponin I 0.056 H* Total Protein 6.4 Albumin 3.7 Globulin 2.7 Albumin/Globulin Ratio 1.4 Quality Measures Quality Measures VTE prophylaxis Assessment & Plan Assessment Current Active Medications: Generic Name Dose Route Start Last Admin Trade Name Freq PRN Reason Stop Dose Admin Acetaminophen 650 mg 08/31/24 04:47 09/01/24 08:50 Acetaminophen 325 Mg Tablet PO 09/30/24 04:46 650 mg Q6H PRN Administration Fever >100.3 or pain 1-3 Enoxaparin Sodium 40 mg 08/31/24 09:00 09/01/24 08:50 Enoxaparin Sod Inj 40 Mg/0.4 Ml Syringe SC 09/14/24 08:59 40 mg QDAY CASH Administration Ceftriaxone Sodium/Dextrose 1 gm in 50 mls @ 100 mls/hr 08/31/24 21:00 08/31/24 20:48 Rocephin/D5w 1gm Iv Premix IV 09/07/24 20:59 100 mls/hr QDAY@2100 CASH Administration Ondansetron HCl 4 mg 08/31/24 04:47 Ondansetron Inj 2 Mg/Ml Inj 2 Ml IV 09/30/24 04:46 Q6H PRN NAUSEA OR VOMITING Protocol Sennosides 1 tab 08/31/24 04:47 Senna Tablet PO 09/30/24 04:46 QDAY PRN constipation Protocol Plan Maricarmen Vallejo is a 53-year-old female with no significant past medical history who presented with generalized weakness, N/V, chills, and shakes that started a few days ago. Also endorses associated decreased appetite and mild back pain. In ED, HR 147, temp 103.1 ?F, normotensive, and on room air. CBC unremarkable but neutrophil count elevated,, UA Pro-Loyd 6.7 showed 150 RBC, 83 WBC, LE positive. Initial troponin 0.08 -> 0.1. EKG shows sinus tachycardia, CXR showed possible early bibasilar pneumonia. CT A/P: Suspicious for right pyelonephritis, thickened bladder wall, splenomegaly, irreular liver contour. Admitted for management for right pyelonephritis. #Right-sided pyelonephritis #Complex UTI Presented with generalized weakness, N/V, chills, shakes, decreased appetite, mild back pain. CT A/P: Suspicious for right pyelonephritis, thickened bladder wall On admission, temp 103.1 ?F, HR 147, normotensive, on RA. No leukocytosis, elevated neutrophil count, Pro-Loyd 6.7. UA: 83 WBC, LE positive, 150 RBC. ? Ceftriaxone 1 g IV daily ? Urine culture 08/31: Pending ? Blood culture : Pending #Nausea, vomiting #Epigastric pain T. bili wnl, AST and ALT normal upon admission. AST slightly up trended. ? Pantoprazole 40 mg daily ? Zofran as needed ? Continue to monitor Hospital management: Disposition: management of right-sided pyelonephritis, pending cultures Fluids: not indicated Diet: regular Lines: PIV DVT prophylaxis: enoxaparin 40 mg daily GI prophylaxis: pantoprazole 40 mg daily CODE STATUS: full code ----- Plan discussed with attending physician Dr. Holcomb and senior resident physician Dr. Nena Peña MD PGY-1 Internal Medicine Attending Provider Attestation/Addendum Face to face evaluation was performed by me. I have personally seen and examined the patient. I discussed the assessment and plan with the entire medicine team. I reviewed available medical records, imaging studies, laboratory results. I agree with the above subjective data, objective findings, assessment and plan except as corrected by me or noted below Sepsis present admission due to below without septic shock Right-sided pyelonephritis complicated urinary tract infection, suspect gram- negative bacilli Chills and shivering due to above?plan to give another day insulin at least for now. Today feels better still had chills, temperature 100.3 overnight. Continue IV ceftriaxone antibiotic. IV fluids, as needed Tylenol. Follow urine cultures/susceptibilities More than > 30 minutes spent on the encounter
--- NOTE | 2024-09-01 17:04 | PC.NURSE ---
Patients temperature 98.4. will continue to monitor patient.
--- NOTE | 2024-09-01 17:08 | PC.NURSE ---
Educated patient and daughter at bedside about cooling measures. Will continue to monitor patient.
[2024-09-01] MEDS: cefTRIAXone/D5w 1gm IV premix 1 GM/50 ML BAG IV (21:13)
[2024-09-02] VITALS: BP 117/67; PULSE 83; PULSE 91; RESP 17; TEMP 37.3; O2SAT 96
[2024-09-02 04:00] VITALS: BP 110/70; PULSE 82; PULSE 89; RESP 16; TEMP 37.1; O2SAT 93
[2024-09-02 05:19] LABS: Basophils % (Auto) 0 % (0-2.5); Eosinophils # (Auto) 0.1 Thou/mm3 (0.0-0.5); Eosinophils % (Auto) 1 % (0-10); Hematocrit 31.5 % (36.0-46.0); Hemoglobin 10.5 g/dL (12.0-16.0); Immature Granulocytes % (Auto) 0 % (0-0); Immature Granulocytes Auto 0.02 Thou/mm3 (0.00-0.00); Lymphocytes # (Auto) 1.2 Thou/mm3 (1.0-4.8); Lymphocytes % (Auto) 24 % (10-50); Mean Corpuscular HGB Conc 33.3 g/dl (31.0-37.0); Mean Corpuscular Hemoglobin 27.3 pg (25.0-35.0); Mean Corpuscular Volume 82 fL (80-100); Monocytes # (Auto) 0.7 Thou/mm3 (0.0-0.8); Monocytes % (Auto) 13 % (0-12); Neutrophils % (Auto) 61 % (37-80); Nucleated Red Blood Cell % 0 /100 WBC (0); Platelet Count 154 Thou/mm3 (140-440); RDW Standard Deviation 46.1 fL (36.4-46.3); Red Blood Count 3.85 Miln/mm3 (4.00-5.20); White Blood Count 4.9 Thou/mm3 (3.6-11.0)
[2024-09-02 06:00] VITALS: BMI 40.2
[2024-09-02 06:10] LABS: Alanine Aminotransferase 60 U/L (10-49); Albumin, Serum 3.6 gm/dL (3.5-5.0); Albumin/Globulin Ratio 1.3 (1.2-2.2); Alkaline Phosphatase 111 U/L (46-116); Anion Gap 8 (7-16); Aspartate Amino Transferase 39 U/L (0-34); BUN/Creatinine Ratio 10 Ratio (12-20); Bilirubin,Total 0.3 mg/dL (0.3-1.2); Blood Urea Nitrogen 7 mg/dL (9-23); Calcium 8.7 mg/dL (8.3-10.6); Carbon Dioxide 24.7 mMol/L (20.0-31.0); Chloride 104 mMol/L (98-107); Creatinine (Component) 0.7 mg/dL (0.6-1.3); Estimated Creatinine Clearance 103.7 mL/min (>60); Globulin 2.7 gm/dL (2.3-3.5); Glucose 105 mg/dL (74-106); Osmolality,Calculated 271 (275-295); Potassium 3.8 mMol/L (3.4-5.1); Sodium 137 mMol/L (136-145); Total Protein 6.3 gm/dL (5.7-8.2); eGFR > 60 See Note
[2024-09-02 07:34] VITALS: BP 96/74; PULSE 84; RESP 16; TEMP 37.6; O2SAT 95
[2024-09-02 08:00] VITALS: PULSE 93
[2024-09-02 09:53] VITALS: PULSE 72; RESP 18; RESP 96
[2024-09-02 11:53] VITALS: BP 112/66; PULSE 76; RESP 18; TEMP 36.7; O2SAT 95
--- NOTE | 2024-09-02 12:24 | PD.RESPRO ---
Documentation for date of: 09/02/24 Exam Vital Signs Temp Pulse Resp BP Pulse Ox O2 Del Method 98.0 F 76 18 112/66 95 Room Air 09/02/24 11:53 09/02/24 11:53 09/02/24 11:53 09/02/24 11:53 09/02/24 11:53 09/02/24 11:53 Objective Labs 09/02/24 04:20 09/02/24 04:20 Labs: Laboratory Results - last 24 hr 09/02/24 04:20 WBC 4.9 RBC 3.85 L Hgb 10.5 L Hct 31.5 L MCV 82 MCH 27.3 MCHC 33.3 RDW Std Deviation 46.1 Plt Count 154 Neut % (Auto) 61 Lymph % (Auto) 24 [place] % (Auto) 13 H Eos % (Auto) 1 Baso % (Auto) 0 Neut # (Auto) 3.0 Lymph # (Auto) 1.2 [place] # (Auto) 0.7 Eos # (Auto) 0.1 Baso # (Auto) 0.0 Immature Gran # (Auto) 0.02 H Absolute Nucleated RBC 0.00 Immature Gran % 0 Nucleated RBC % 0 Sodium 137 Potassium 3.8 Chloride 104 Carbon Dioxide 24.7 Anion Gap 8 BUN 7 L Creatinine 0.7 Estim Creat Clear Calc 103.7 eGFR > 60 BUN/Creatinine Ratio 10 L Glucose 105 Calculated Osmolality 271 L Calcium 8.7 Corrected Calcium 9.0 Total Bilirubin 0.3 AST 39 H ALT 60 H Alkaline Phosphatase 111 D Total Protein 6.3 Albumin 3.6 Globulin 2.7 Albumin/Globulin Ratio 1.3 Quality Measures Quality Measures VTE prophylaxis
--- NOTE | 2024-09-02 12:38 | ESDS_ITS ---
<Statement entered by John Long MD - 09/02/24 21:54> Patient seen and examined at bedside with resident. Agree with assessment and plan as dictated below. Patient cleared for discharge with 2 additional days of po abx and advised to fu with primary care farida. John Long MD Time spent 30mins Planned Discharge Date 09/02/24 DS: Providers Provider Date of admission: 08/31/24 04:47 Primary care physician: Kurt Gomez MD Admitting Provider: Faustino Nicole MD Attending Provider on Admission: Faustino Nicole MD Attending Provider on DC: Lisa Burns MD Discharging Provider: Lisa Burns MD DS: Diagnosis Problem List Completed Was Problem List Reviewed/Reconciled?: Yes Hospital Course Hospital Course Hospital course: Ms. Vallejo is a 53-year-old female with no significant past medical history who presented to [facility] ED complaing of generalized weakness, Nausea, vomiting, chills, and shakes that started a few days ago. CXR showed possible early bibasilar pneumonia. CT A/P: Suspicious for right pyelonephritis, thickened bladder wall, splenomegaly, irregular liver contour. Pt was admitted for management for right pyelonephritis and urine analysis is positive for UTI. Pt received 3 days of IV rocephin and will continue additional 2 days of ciprofloxacin to complete course of antibiotics for UTI/pyelonephritis. Pt is hemodynamically and clinically stable with complete resolution of her symptoms and tolerating oral diet to be discharged home to self care. Discharge Recommendations -Follow up with primary care physician within 1 week, if you do not have one you can make an appointment at the [facility] by calling [phone] -You have been prescribe antibiotics for 2 more days, please take them as directed -Take all your medications as prescribed -If your symptoms worsen or return, promptly return to the ED Hospitalization Diagnosis #Right-sided pyelonephritis #Complex UTI #Nausea, vomiting #Epigastric pain Assessment and plan discussed with my attending physician Dr. Ethan Burns (PGY-1)- Internal medicine resident Time Spent with Patient Time attestation: Total time spent providing and/or coordinating discharge services: Time spent: Greater than 30 minutes Exam Vital Signs Temp Pulse Resp BP Pulse Ox O2 Del Method 98.0 F 76 18 112/66 95 Room Air 09/02/24 11:53 09/02/24 11:53 09/02/24 11:53 09/02/24 11:53 09/02/24 11:53 09/02/24 11:53 Narrative Exam GENERAL: A&Ox3 . Awake, Not in acute distress NEURO: no focal neurological deficits HEENT: Atraumatic, Normocephalic. mucous membranes moist. Eyes open, symmetrical, & clear HEART: Normal Heart Sounds LUNGS: Clear to auscultation with no wheezing or crackles. ABDOMEN: soft, non-distended, non-tender, bowel sounds heard, no guarding or rebound tenderness SKIN: No Rash or ecchymoses EXTREMITIES: No edema, tenderness, able to move all 4 extremities, pedal pulses palpated Discharge Plan Plan Patient Disposition: HOME (Self Care) Care Plan Goals: -Follow up with primary care physician within 1 week, if you do not have one you can make an appointment at the [facility] by calling [phone] -You have been prescribe antibiotics for 2 more days, please take them as directed -Take all your medications as prescribed -If your symptoms worsen or return, promptly return to the ED Prescriptions/Referrals Prescriptions/Med Rec: New ciprofloxacin HCl 250 mg tablet 250 mg PO Q12H 2 Days Qty: 4 0RF Continued meclizine 12.5 mg tablet 12.5 mg PO Q8HR PRN (Reason: dizziness) Qty: 10 0RF Referrals: Kurt Gomez MD [Primary Care Provider] - Patient/Caregiver Discharge Instructions Education Materials: Monitoring Kidney Health, ED Pyelonephritis, Female (Adult) Print Language: Mexican Stand Alone Forms: Rachel Award Info., Patient Portal Info Letter Discharge Order Discharge Orders: Discharge (Routine); Ordered 09/02/24 Ordered By: Lisa Burns Quality Discharge Quality Measures VTE prophylaxis
== END 2024-09-02 12:11 | disposition home or self-care (01) | DRG 720 ==
LOC: SERX 04:43 → SERHOLD 06:23 → S3NX 14:25
PROVIDERS: Emergency Medicine; Physician Assistant; Admitting Provider Student in an Organized Health Care Education/Training Program; PCP Family Medicine; Visit Provider Student in an Organized Health Care Education/Training Program
DX: A41.9 Sepsis, unspecified organism (principal); N12 Tubulo-interstitial nephritis, not specified as acute or chronic; K44.9 Diaphragmatic hernia without obstruction or gangrene; R16.2 Hepatomegaly with splenomegaly, not elsewhere classified; Z79.899 Other long term (current) drug therapy; Z90.710 Acquired absence of both cervix and uterus; Z88.0 Allergy status to penicillin
CPT/HCPCS: 36415; 71045; 74177; 80053; 81001; 83605; 83690; 84145; 84484; 85025; 85610; 85730; 87040; 87086; 87400; 87811; 93005; 93225; 96361; 96365; 96375; 99285; A4649; J0696; J1650; J1885; J2405; J7030; J7120; Q9967; A9270